=== PATIENT | female | born 1970 | race Caucasian/White ===

== ENCOUNTER 2022-02-11 13:40 | Emergency (ER) | payer OTHER ==
[~2022-02-11] VITALS: Ht 162.6 cm; Wt 86.4 kg
[2022-02-11 14:47] LABS: BASOPHILS % (AUTO) 0.2 % (0-1); EOSINOPHILS # (AUTO) 0.2 X10'3 (0-0.9); EOSINOPHILS % (AUTO) 1.3 % (0-6); HEMATOCRIT 41.9 % (35.0-45.0); HEMOGLOBIN 14.3 g/dl (12.0-16.0); LYMPHOCYTES # (AUTO) 0.7 X10'3 (1.1-4.8); LYMPHOCYTES % (AUTO) 4.5 % (21-51); MEAN CORPUSCULAR HEMOGLOBIN 28.9 PG (27.0-31.0); MEAN CORPUSCULAR HGB CONC 34.2 g/dL (33.0-36.5); MEAN CORPUSCULAR VOLUME 84.5 FL (78-98); MEAN PLATELET VOLUME 8.2 FL (7.4-10.4); MONOCYTES # (AUTO) 0.7 X10'3 (0-0.9); MONOCYTES % (AUTO) 4.5 % (2-12); NEUTROPHILS # (AUTO) 13.2 X10'3 (1.8-7.7); NEUTROPHILS % (AUTO) 89.5 % (42-75); PLATELET COUNT 263 X10'3 (140-440); RED BLOOD COUNT 4.96 X10'6 (4.20-5.60); RED CELL DISTRIBUTION WIDTH 14.6 % (11.5-14.5); WHITE BLOOD COUNT 14.7 X10'3 (4.5-11.0)
[2022-02-11 15:05] LABS: ALANINE AMINOTRANSFERASE 33 U/L (12-78); ALBUMIN 3.4 G/DL (3.4-5.0); ALBUMIN/GLOBULIN RATIO 0.9 (1.1-1.5); ALKALINE PHOSPHATASE 71 IU/L (46-116); ANION GAP 8 (8-16); ASPARTATE AMINO TRANSFERASE 32 U/L (10-37); BLOOD UREA NITROGEN 12 MG/DL (7-18); BUN/CREATININE RATIO 9.9 (6.6-38.0); CALCIUM 8.7 MG/DL (8.5-10.1); CHLORIDE 100 MMOL/L (99-107); CREATININE 1.21 MG/DL (0.40-0.90); GLUCOSE 125 MG/DL (70-104); POTASSIUM 3.8 MMOL/L (3.5-5.1); SODIUM 133 MMOL/L (135-145); TOTAL CARBON DIOXIDE 25.2 MMOL/L (24-32); TOTAL PROTEIN 7.4 G/DL (6.4-8.2); eGFR 47 ML/MIN
[2022-02-11] MEDS ORDERED: normal saline 1000ml 1,000 ML IV ONE (15:35)
[2022-02-11] MEDS ORDERED: hydrOXYzine 25 MG tablet PO ONE (15:40)
[2022-02-11] MEDS ORDERED: acetaminophen 325mg tablet PO ONE (16:55)
[2022-02-11] MEDS ORDERED: iohexol 350MG/ML 100ml bottle IV ONE (16:55)
[2022-02-11 17:01] LABS: D-DIMER 2.02 MG/L FEU (0-0.50)
[2022-02-11] MEDS ORDERED: DOXYCYCLINE 100MG CAPSULE PO STA (18:33)
[2022-02-11] MEDS ORDERED: DOXY100C76 PO (18:34)
[2022-02-11] MEDS ORDERED: ondansetron/PF 4mg/2ml inj IV ONE (18:35)
[2022-02-11 19:09] VITALS: BP 124/83
== END 2022-02-11 20:44 | disposition home or self-care (01) ==
LOC: ER 13:41
DX: J10.1 Influenza due to other identified influenza virus with other respiratory manifestations (principal); Z20.822 Contact with and (suspected) exposure to COVID-19; L03.317 Cellulitis of buttock; R42 Dizziness and giddiness; Z88.0 Allergy status to penicillin; Z79.2 Long term (current) use of antibiotics; G89.29 Other chronic pain
CPT/HCPCS: 36415; 71045; 71275; 80053; 83880; 84484; 85025; 85379; 87502; 87503; 87635; 96361; 96374; 99285; C9803; J2405; J7030; Q9967